=== PATIENT | male | born 1950 | race African-American/Black ===

== ENCOUNTER → 2017-09-27 | Outpatient (CLI) | payer MEDICARE | END | disposition home or self-care (01) | LOC: US 10:14 | DX: Z13.6 Encounter for screening for cardiovascular disorders (principal); I73.9 Peripheral vascular disease, unspecified; J43.2 Centrilobular emphysema; M47.892 Other spondylosis, cervical region; I10 Essential (primary) hypertension; F17.200 Nicotine dependence, unspecified, uncomplicated | CPT/HCPCS: 76770; 93925 ==

== ENCOUNTER → 2017-09-27 | Outpatient (CLI) | payer MEDICARE ==
[~2017-09-27] MED LIST: CONTRAST GIVEN. MC
[2017-09-27 08:02] LABS: CREATININE 1.4 mg/dL (0.7-1.3)
[2017-09-27 08:02] LABS: GFR 61.2
[2017-09-27] MEDS: IOHEXOL 300 MG/ML 100ML VIAL. IV (09:26)
== END | disposition home or self-care (01) ==
LOC: CT 10:11
DX: M47.892 Other spondylosis, cervical region (principal); J43.2 Centrilobular emphysema
CPT/HCPCS: 36415; 70491; 82565; Q9967

== ENCOUNTER → 2018-04-23 | Outpatient (CLI) | payer MEDICARE, OTHER ==
--- NOTE | 2018-04-23 10:32 | KCIC ---
Esophagram 04/23/2018 CLINICAL HISTORY: Dysphagia and choking. History of stroke in November 2017. The patient has a feeding tube. TECHNIQUE: An esophagram was performed under fluoroscopic control. Two digital spot radiographs were obtained. The fluoroscopic time is 2 minutes 11 seconds. FINDINGS: No previous imaging studies are available for comparison. The patient has a very difficult time swallowing and was only able to swallow very small amounts of thin liquid barium during the course of examination. The lack of contrast severely limits the study for the evaluation of the mucosal structures of the hypopharynx, esophagus and GE junction. The oral phase of swallowing is prolonged. When the barium bolus is propelled into the hypopharynx,Muscular contraction of the hypopharynx is noted to be markedly abnormal and incoordinated. The patient demonstrates significant aspiration. A small amount of the contrast passed into the esophagus distal to the upper esophageal sphincter. Esophageal motility in a standing position is within normal limits. No obvious mucosal abnormality of the esophagus or hypopharynx is seen. The patient was not evaluated for reflux. IMPRESSION: 1. Limited study for reasons outlined above. 2. The patient's complaint of dysphagia appears to be due to abnormal/incoordinated hypopharyngeal muscle contraction presumably related to his recent stroke. 3. Aspiration is is seen during the course of this examination. Electronically signed by: Luis Pantoja MD (04/23/2018 10:28 AM) [id number]
== END | disposition home or self-care (01) ==
LOC: KCIC 07:52
PROVIDERS: ATTEND Internal Medicine Gastroenterology
DX: R13.10 Dysphagia, unspecified (principal); R09.89 Other specified symptoms and signs involving the circulatory and respiratory systems; Z86.73 Personal history of transient ischemic attack (TIA), and cerebral infarction without residual deficits
CPT/HCPCS: 74220